=== PATIENT | female | born 1975 | race Caucasian/White ===

== ENCOUNTER 2016-06-14 16:08 | Emergency (ER) | payer MEDICAID ==
[2016-06-14 17:06] VITALS: BP 115/65; PULSE 86; RESP 17; TEMP 98; O2SAT 99
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
[2016-06-14] MEDS ORDERED: CEPHALEXIN MONOHYDRATE 500 MG CAP PO ONE (17:30)
--- NOTE | 2016-06-14 18:23 | RADRPT ---
EXAM DATE/TIME: 06/14/2016 18:14 [facility] COMPARISON: No previous studies available for comparison. INDICATIONS : Left zygoma pain, possible abcess. MEDICAL HISTORY : None. SURGICAL HISTORY : Left zygoma surgery. ENCOUNTER: Initial ACUITY: 3 days PAIN SCORE: 10/10 LOCATION: Left zygoma. FINDINGS: Multiple views of the facial bones demonstrate no evidence of fracture. The nasal bone is intact. T he zygomatic arches are intact. There is evidence of previous areas of internal fixation especially a round the left orbit and left maxillary area. The paranasal sinuses are grossly clear. The bony struc tures are grossly intact.. CONCLUSION: Unremarkable examination in this patient status post previous internal fixation of the left orbit and left maxillary areas. Walter Santiago MD on June 14, 2016 at 18:19 Board Certified Radiologist. This report was verified electronically.
[2016-06-14] MEDS ORDERED: TRAM50TA PO (18:30)
[2016-06-14] MEDS ORDERED: CEPH-460 PO (18:35)
[2016-06-14] MEDS ORDERED: KETOROLAC TROMETHAMINE 60 MG/2 ML (IM) VIAL IM ONE (18:45)
== END 2016-06-14 19:59 | disposition home or self-care (01) ==
LOC: NEPB 16:08
DX: R51 Headache (principal); Z90.710 Acquired absence of both cervix and uterus; Z72.0 Tobacco use
CPT/HCPCS: 70150; 96372; 99283; J1885